=== PATIENT | female | born 1975 | race American Indian/Alaskan Native ===

== ENCOUNTER 2017-03-25 12:12 | Emergency (ER) | payer MEDICAID ==
[2017-03-25] MEDS ORDERED: NORCO 5/325 PO ONE (14:21)
--- NOTE | 2017-03-25 14:23 | Emergency Department Report ---
Chief Complaint: Vaginal Bleeding Stated Complaint: VAG BLEEDING/CRAMPING/10 WKS PREG. Time Seen by Provider: 03/25/17 14:17 - HPI History of Present Illness: PT states she went to [employer] for spotting while . PT states she followed up on Friday and states her bhcg mildly increased. PT states she is bleeding and passing clots. PT states she feels like she is having another miscarriage. PT states she had US last week and was told that she is supposed to be 10 weeks but she was only measuring 6 weeks. PT states she was told no heartbeat. PT states she was told yesterday that she was possible miscarriage - ROS Review of Systems: + lower abd pain + vaginal bleeding - dysuria - Exam Vital Signs: Vital Signs 03/25/17 12:33 Temperature 98 F Pulse Rate 86 Respiratory 20 Rate Blood Pressure 127/83 O2 Sat by Pulse 99 Oximetry MSE screening note: Focused history and physical exam performed. Due to findings the following was ordered: ED Disposition for MSE Condition: Stable Referrals: PRIMARY CARE [Primary Care Provider] - 3-5 Days
[2017-03-25] MEDS ORDERED: NORCO 5/325 ONE (14:25)
[2017-03-25 15:13] LABS: Alanine Aminotransferase 12 units/L (7-56); Albumin 4.3 g/dL (3.9-5); Albumin/Globulin Ratio 1.1 %; Alkaline Phosphatase 80 units/L (35-129); Anion Gap 19 mmol/L; BUN/Creatinine Ratio 10; Blood Urea Nitrogen 8 mg/dL (7-17); Carbon Dioxide 22 mmol/L (22-30); Chloride 102.6 mmol/L (98-107); Glucose 97 mg/dL (65-100); Potassium 4.1 mmol/L (3.6-5.0); Sodium 139 mmol/L (137-145); Total Protein 8.2 g/dL (6.3-8.2)
[2017-03-25 15:46] LABS: Basophils % (Auto) 0.4 % (0.0-1.8); Eosinophils % (Auto) 1.3 % (0.0-4.3); Hematocrit 35.1 % (30.3-42.9); Hemoglobin 12.1 gm/dl (10.1-14.3); Mean Corpuscular HGB Conc 34 % (30-34); Mean Corpuscular Hemoglobin 31 pg (28-32); Mean Corpuscular Volume 90 fl (79-97); Platelet Count 371 K/mm3 (140-440); Red Blood Count 3.89 M/mm3 (3.65-5.03); Red Cell Distribution Width 13.5 % (13.2-15.2); White Blood Count 11.9 K/mm3 (4.5-11.0)
--- NOTE | 2017-03-25 16:33 | Ultrasound Report ---
Transvaginal and transabdominal OB ultrasound. History: Vaginal bleeding and pelvic pain. Serum hCG at the time of the study is 1501. Findings: There is no evidence of an intrauterine . The endometrial echo is markedly heterogeneous and thickened it to 0.0 cm. More distally, there is extensive heterogeneous appearance of the endometrial cavity in the lower uterine segment and in the cervix. The cervix is patent. The left ovary is normal. The right ovary is not identified, but no adnexal masses are seen on the right. There is no fluid within the cul-de-sac. Impression: No evidence of IUP. Thickened heterogeneous appearance of the endometrial echo which is most pronounced in the lower uterine segment extending into the patent cervix. This most likely represents an incomplete and hemorrhage.
--- NOTE | 2017-03-25 18:09 | Emergency Department Report ---
ED Female HPI - General Chief complaint: Vaginal Bleeding Stated complaint: VAG BLEEDING/CRAMPING/10 WKS PREG. Time Seen by Provider: 03/25/17 14:17 Source: patient Mode of arrival: Ambulatory Limitations: No Limitations - History of Present Illness Initial comments: The patient is a 41 years old female 9 para 7 and 1 miscarriage c/o lower abdominal pain and cramping with vaginal bleeding,patient stated that she has been passing clots. Patient denied any fever no nausea no vomiting. No shortness of breath or chest pain. MD Complaint: vaginal bleeding, pelvic pain -: Last night Radiation: suprapubic Severity scale (0 -10): 7 Quality: cramping Associated Symptoms: vaginal bleeding, abdominal pain. denies: nausea/vomiting , fever/chills, headaches, loss of appetite, hematuria, shortness of breath - Related Data : 9 Para: 7 Previous Rx's Medication Instructions Recorded Last Taken Type Doxycycline [Vibramycin CAP] 100 mg PO Q12H #14 capsule 11/25/13 Unknown Rx Ferrous Sulfate [Feosol 325 MG tab] 325 mg PO BID #60 tablet 11/25/13 Unknown Rx Ibuprofen [Motrin 600 MG tab] 600 mg PO Q6HR PRN #30 tablet 11/25/13 Unknown Rx Methylergonovine [Methergine] 0.2 mg PO Q8HR #3 tablet 11/25/13 Unknown Rx HYDROcodone/APAP 5-325 [[place] 1 each PO Q6HR PRN #14 tablet 03/25/17 Unknown Rx 5/325] Misoprostol [Cytotec] 400 mcg PO QID #3 tablet 03/25/17 Unknown Rx Ondansetron [Zofran Odt] 4 mg PO Q8HR PRN #14 tab.rapdis 03/25/17 Unknown Rx Allergies Allergy/AdvReac Type Severity Reaction Status Date / Time Penicillins Allergy Rash Verified 11/23/13 22:33 ED Review of Systems ROS: Stated complaint: VAG BLEEDING/CRAMPING/10 WKS PREG. Other details as noted in HPI Comment: All other systems reviewed and negative Constitutional: denies: chills, fever ENT: denies: ear pain Cardiovascular: denies: chest pain, palpitations, edema Gastrointestinal: abdominal pain. denies: nausea, vomiting, diarrhea, constipation, hematemesis, melena, hematochezia Genitourinary: denies: urgency, dysuria, frequency Musculoskeletal: denies: back pain Neurological: denies: headache, weakness, numbness, paresthesias ED Past Medical Hx - Past Medical History Previous Medical History?: No Hx Hypertension: No Hx Seizures: No - Surgical History Hx Cholecystectomy: Yes (03/2013) - Social History Smoking Status: Never Smoker Substance Use Type: None - Medications Home Medications: Home Medications Medication Instructions Recorded Confirmed Last Taken Type Doxycycline [Vibramycin CAP] 100 mg PO Q12H #14 capsule 11/25/13 Unknown Rx Ferrous Sulfate [Feosol 325 MG tab] 325 mg PO BID #60 tablet 11/25/13 Unknown Rx Ibuprofen [Motrin 600 MG tab] 600 mg PO Q6HR PRN #30 tablet 11/25/13 Unknown Rx Methylergonovine [Methergine] 0.2 mg PO Q8HR #3 tablet 11/25/13 Unknown Rx HYDROcodone/APAP 5-325 [[place] 1 each PO Q6HR PRN #14 tablet 03/25/17 Unknown Rx 5/325] Misoprostol [Cytotec] 400 mcg PO QID #3 tablet 03/25/17 Unknown Rx Ondansetron [Zofran Odt] 4 mg PO Q8HR PRN #14 tab.rapdis 03/25/17 Unknown Rx ED Physical Exam - General Limitations: No Limitations General appearance: alert, in no apparent distress - Head Head exam: Present: normocephalic - ENT ENT exam: Present: normal exam, mucous membranes moist - Neck Neck exam: Present: normal inspection - Respiratory Respiratory exam: Present: normal lung sounds bilaterally. Absent: respiratory distress, wheezes, rales, rhonchi - Cardiovascular Cardiovascular Exam: Present: regular rate, normal rhythm, normal heart sounds - GI/Abdominal GI/Abdominal exam: Present: soft, normal bowel sounds. Absent: distended, tenderness, guarding, rebound, rigid, mass, bruit, pulsatile mass - Extremities Exam Extremities exam: Present: normal inspection. Absent: pedal edema - Back Exam Back exam: Present: normal inspection. Absent: CVA tenderness (R), CVA tenderness (L) - Neurological Exam Neurological exam: Present: alert, oriented X3, CN II-XII intact - Skin Skin exam: Present: warm, intact ED Course Vital Signs 03/25/17 12:33 Temperature 98 F Pulse Rate 86 Respiratory 20 Rate Blood Pressure 127/83 O2 Sat by Pulse 99 Oximetry ED Medical Decision Making - Lab Data Result diagrams: 03/25/17 14:34 03/25/17 14:34 - Radiology Data Radiology results: report reviewed Ultrasound of the pelvis and transvaginal showed no evidence of intrauterine on was possible incomplete - Medical Decision Making Patient vital signs stable on the complaining of crampy abdominal pain. We'll treat her pain. Discussed with Dr. Ford advised to give side cytotec 400 g for 3 doses and to follow-up with them in the office tomorrow. Critical care attestation.: If time is entered above; I have spent that time in minutes in the direct care of this critically ill patient, excluding procedure time. ED Disposition Clinical Impression: Incomplete miscarriage with blood clot, Vaginal bleeding Disposition: - TO HOME OR SELFCARE Is pt being admited?: No Condition: Stable Instructions: Spontaneous Miscarriage (ED) Additional Instructions: Follow-up Dr. Daniel Gallego tomorrow Referrals: DANIEL GALLEGO MD [Staff Physician] - 3-5 Days
[2017-03-25] MEDS ORDERED: TORADOL IM ONE (18:16)
[2017-03-25 18:24] VITALS: BP 117/67
== END 2017-03-25 19:04 | disposition home or self-care (01) ==
LOC: ED 12:12
DX: O03.9 Complete or unspecified spontaneous abortion without complication (principal); O26.891 Other specified pregnancy related conditions, first trimester; R10.30 Lower abdominal pain, unspecified; Z3A.10 10 weeks gestation of pregnancy
CPT/HCPCS: 36415; 76801; 76817; 80053; 84702; 85025; 86900; 86901; 96372; 99284; J1885

== ENCOUNTER 2020-09-07 12:59 | Emergency (ER) | payer MEDICAID ==
[2020-09-07 13:06] VITALS: BP 118/64
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
== END 2020-09-07 14:40 | disposition home or self-care (01) ==
LOC: ED 12:59
DX: S46.912A Strain of unspecified muscle, fascia and tendon at shoulder and upper arm level, left arm, initial encounter (principal); S39.012A Strain of muscle, fascia and tendon of lower back, initial encounter; Z98.890 Other specified postprocedural states; Z79.1 Long term (current) use of non-steroidal anti-inflammatories (NSAID); Z79.899 Other long term (current) drug therapy; Z88.0 Allergy status to penicillin; V49.49XA Driver injured in collision with other motor vehicles in traffic accident, initial encounter; Y93.89 Activity, other specified; Y92.410 Unspecified street and highway as the place of occurrence of the external cause; Y99.8 Other external cause status
CPT/HCPCS: 99282